=== PATIENT | male | born 1975 | race African-American/Black ===

== ENCOUNTER 2017-01-21 10:05 | Emergency (ER) | payer OTHER ==
[2017-01-21 10:07] VITALS: BP 161/101; PULSE 95; RESP 18; TEMP 98.1; O2SAT 98
[2017-01-21] MEDS ORDERED: CHOLESTEROL MED (10:18)
[2017-01-21] MEDS ORDERED: AMLO2.5T PO (10:18)
[2017-01-21] MEDS ORDERED: METF500T PO (10:18)
[2017-01-21] MEDS ORDERED: BACT800T5 PO (10:23)
--- NOTE | 2017-01-21 10:29 | PD ---
HPI Chief Complaint: Skin Problem Time Seen by Provider: 10:18 Travel History International Travel<30 days: No Contact w/Intl Traveler<30days: No Traveled to known affect area: No History of Present Illness HPI This patient complains of an infected lesion in his back. Duration 3 days. Severity is moderate. No fever. It was actively draining. PFSH Past Medical History High Cholesterol: Yes Diabetes: Yes (PRE DIABETIC) Patient Takes Glucophage: Yes Hypertension: Yes Tetanus Vaccination: Unknown Influenza Vaccination: Yes Past Surgical History Cholecystectomy: Yes Tonsillectomy: Yes Social History Alcohol Use: No Tobacco Use: No Substance Use: No Allergies-Medications (Allergen,Severity, Reaction): Coded Allergies: No Known Allergies (Unverified , 01/21/17) Reported Meds & Prescriptions Reported Meds & Active Scripts Active Bactrim DS (Sulfamethoxazole-Trimethoprim) 800-160 Mg Tab 1 Tab PO BID Reported [Cholesterol Med] Amlodipine (Amlodipine Besylate) 2.5 Mg Tab 2.5 Mg PO DAILY Metformin (Metformin HCl) 500 Mg Tab 500 Mg PO BIDPC With meals Review of Systems HENT: No: Headaches Respiratory: No: Cough Gastrointestinal: No: Nausea Physical Exam Narrative Psych: Normal mood and affect. Normal insight and judgment. NECK: Symmetrical appearance, midline trachea. No mass or crepitus. Thyroid without enlargement, tenderness, or mass. Back: Patient has a 1 cm diameter infected lesion. No fluctuance. No surrounding cellulitis Data Data Last Documented VS Vital Signs Date Time Temp Pulse Resp B/P Pulse Ox O2 Delivery O2 Flow Rate FiO2 01/21/17 10:07 98.1 95 18 161/101 98 MDM Medical Decision Making Medical Screen Exam Complete: Yes Emergency Medical Condition: Yes Medical Record Reviewed: Yes Differential Diagnosis Boil, abscess, carbuncle Narrative Course I have reviewed the patient's electronic medical record. Patient is a small infected lesion on the low mid back. I prescribed one week of Bactrim DS and recommend warm compresses. Diagnosis Primary Impression: Infected lesion of skin Additional Instructions: The patient was advised to follow up with their physician and return if they worsen. Utilize Warm compresses Med/Other Pt SpecificInfo: Prescription(s) given Scripts Sulfamethoxazole-Trimethoprim (Bactrim DS)800-160 Mg Tab1 Tab PO BID #14 TAB Ref 0 Prov:Devyn Patel MD 01/21/17 Disposition: 01 DISCHARGE HOME Condition: Stable Devyn Patel MD January 21, 2017 10:29
== END 2017-01-21 10:40 | disposition home or self-care (01) ==
LOC: PHEFT 10:05
DX: L08.9 Local infection of the skin and subcutaneous tissue, unspecified (principal)
CPT/HCPCS: 99282

== ENCOUNTER 2017-09-17 07:50 | Emergency (ER) | payer OTHER ==
[~2017-09-17] VITALS: Ht 175.3 cm; Wt 215.0 kg
[~2017-09-17 07:50] MED LIST: AMLO2.5T PO; BACT800T5 PO; CHOLESTEROL MED; METF500T PO
[2017-09-17 07:53] VITALS: BP 138/74; PULSE 99; RESP 16; TEMP 98.2; O2SAT 96
[2017-09-17] MEDS ORDERED: ATOR20TA15 PO (08:11)
--- NOTE | 2017-09-17 08:21 | PD ---
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 He states that there has been a coworker who is also been sick. He denies any recent fevers, vomiting, or any other symptoms. Modifying Factors: None Associated Signs & Symptoms: Cough, cold symptoms, watery eyes, right sided eye discharge Risk Factors: Possible sick contact PFSH Past Medical History High Cholesterol: Yes Diabetes: Yes (PRE DIABETIC) Patient Takes Glucophage: Yes Hypertension: Yes Past Surgical History Cholecystectomy: Yes Tonsillectomy: Yes Social History Alcohol Use: No Tobacco Use: No Substance Use: No Allergies-Medications (Allergen,Severity, Reaction): Coded Allergies: No Known Allergies (Unverified Adverse Reaction, Unknown, 09/17/17) Reported Meds & Prescriptions Reported Meds & Active Scripts Active Reported Atorvastatin (Atorvastatin Calcium) 20 Mg Tab 20 Mg PO HS Amlodipine (Amlodipine Besylate) 2.5 Mg Tab 2.5 Mg PO DAILY Metformin (Metformin HCl) 500 Mg Tab 500 Mg PO BIDPC With meals Review of Systems Except as stated in HPI: all other systems reviewed are Neg Physical Exam Narrative GENERAL: Well-developed morbidly obese middle age male patient currently in no acute distress. Awake and oriented 3. SKIN: Focused skin assessment warm/dry. HEAD: Atraumatic. Normocephalic. EYES: Pupils equal and round. No scleral icterus. Mild right conjunctival injection with watery discharge. Fluorescein exam shows pickup at the 9 o' clock position in the right I beyond the area of the iris. ENT: Mucosa pink and moist. Mild erythema with no exudates. No uvular edema. No uvular, palatal, or tonsillar deviation. Airway patent. Nasal turbinates appear normal without nasal blood, purulent drainage or septal hematoma. NECK: Trachea midline. Supple. CARDIOVASCULAR: Regular rate and rhythm. No murmur appreciated. RESPIRATORY: No accessory muscle use. Clear to auscultation. Breath sounds equal bilaterally. GASTROINTESTINAL: Abdomen soft, non-tender, nondistended. Hepatic and splenic margins not palpable. MUSCULOSKELETAL: No obvious deformities. No clubbing. No cyanosis. No edema. NEUROLOGICAL: Awake and alert. No obvious cranial nerve deficits. Motor grossly within normal limits. Normal speech. PSYCHIATRIC: Appropriate mood and affect; insight and judgment normal. Data Data Last Documented VS Vital Signs Date Time Temp Pulse Resp B/P (MAP) Pulse Ox O2 Delivery O2 Flow Rate FiO2 09/17/17 07:53 98.2 99 16 138/74 (95) 96 Room Air MDM Medical Decision Making Medical Screen Exam Complete: Yes Emergency Medical Condition: Yes Medical Record Reviewed: Yes Differential Diagnosis URI versus viral syndrome versus conjunctivitis Narrative Course Patient admits he has been rubbing at the eye. There is pickup in the right cornea of fluorescein, questionable for corneal abrasion. My plan would be to treat him with antibiotic eyedrops and have him follow-up with ophthalmology. Return for any worsening in symptoms as needed. The plan has been discussed with him and he states understanding. In addition, he may need to stay out of work for several days considering that this may be contagious. 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 Return for any worsening in discharge, pain, vision change, or new symptoms as needed. Med/Other Pt SpecificInfo: Prescription(s) given Scripts Polymyxin B-Trimethoprim Opth Drops (Polytrim Opth Drops) 10,000-0.1 Unit/Ml-% Soln 1 DROP RIGHT EYE Q6HR for Mgmt Bacterial Infection, #1 BOTTLE 0 Refills Prov: Raymond Hager MD 09/17/17 Disposition: DISCHARGE HOME Condition: Stable Raymond Hager MD Sep 17, 2017 08:21
[2017-09-17] MEDS ORDERED: POLY10O RIGHT EYE (08:37)
== END 2017-09-17 08:56 | disposition home or self-care (01) ==
LOC: PHED 07:50
DX: H10.9 Unspecified conjunctivitis (principal); S05.01XA Injury of conjunctiva and corneal abrasion without foreign body, right eye, initial encounter; R05 Cough; E11.9 Type 2 diabetes mellitus without complications; I10 Essential (primary) hypertension; E78.00 Pure hypercholesterolemia, unspecified; E66.01 Morbid (severe) obesity due to excess calories; X58.XXXA Exposure to other specified factors, initial encounter; Z79.899 Other long term (current) drug therapy
CPT/HCPCS: 99283